=== PATIENT | male | born 1965 | race Caucasian/White ===

== ENCOUNTER → 2017-10-04 | Outpatient (CLI) | payer BC | END | disposition home or self-care (01) | LOC: LAB 16:42 | DX: N18.9 Chronic kidney disease, unspecified (principal) | CPT/HCPCS: 76775 ==

== ENCOUNTER → 2018-02-15 | Outpatient (CLI) | payer BC ==
[2018-02-15 11:33] LABS: ANION GAP 14 (8-16); BLOOD UREA NITROGEN 57 mg/dl (7-20); CALCIUM 8.7 mg/dl (8.4-10.2); CARBON DIOXIDE 22 mmol/L (21-31); CHLORIDE 109 mmol/L (97-110); CREATININE 5.31 mg/dl (0.61-1.24); GLUCOSE 171 mg/dl (70-220); POTASSIUM 4.9 mmol/L (3.5-5.1); SODIUM 140 mmol/L (135-144)
== END | disposition home or self-care (01) ==
LOC: LAB 10:49
DX: N18.9 Chronic kidney disease, unspecified (principal)
CPT/HCPCS: 80048

== ENCOUNTER 2018-03-14 14:50 | Inpatient (IN) | payer BC ==
[2018-03-14 17:25] LABS: ADD MAN DIFF? NO
[2018-03-14 17:29] LABS: BASOPHILS % 0.5 % (0.0-2.0); EOSINOPHILS # 0.3 10^3/ul (0.0-0.5); EOSINOPHILS % 3.6 % (0.0-7.0); HEMATOCRIT 25.9 % (42.0-52.0); HEMOGLOBIN 8.8 g/dl (14.0-18.0); LYMPHOCYTES # 1.1 10^3/ul (0.8-2.9); LYMPHOCYTES % 11.8 % (15.0-51.0); MEAN CORPUSCULAR HEMOGLOBIN 29.6 pg (29.0-33.0); MEAN CORPUSCULAR VOLUME 87.2 fl (82.0-101.0); MEAN PLATELET VOLUME 10.7 fl (7.4-10.4); MONOCYTE # 0.7 10^3/ul (0.3-0.9); MONOCYTES % 7.6 % (0.0-11.0); NEUTROPHIL # 6.8 10^3/ul (1.6-7.5); NEUTROPHILS % 76.2 % (39.0-77.0); PLATELET COUNT 249 10^3/UL (140-415); RED BLOOD COUNT 2.97 10^6/ul (4.70-6.10); RED CELL DISTRIBUTION WIDTH 14.4 % (11.5-14.5)
[2018-03-14 17:29] LABS: WHITE BLOOD COUNT 8.9 10^3/ul (4.8-10.8)
[2018-03-14] MEDS ORDERED: HYDROCODONE/APAP (5/325) TAB PO (17:30)
[2018-03-14] MEDS ORDERED: NACL 0.9% 3 ML SYG IV (17:30)
[2018-03-14] MEDS ORDERED: ZOLPIDEM 5 MG TAB PO (17:30)
[2018-03-14] MEDS ORDERED: LORAZEPAM 0.5 MG TAB PO (17:30)
[2018-03-14] MEDS ORDERED: ONDANSETRON 4 MG TAB PO (17:30)
[2018-03-14] MEDS ORDERED: DOCUSATE SODIUM 100 MG CAP PO (17:30)
[2018-03-14] MEDS ORDERED: ACETAMINOPHEN 325 MG TAB PO (17:30)
[2018-03-14] MEDS: ACCU-CHEK XX ×2 (17:30→20:00)
[2018-03-14] MEDS ORDERED: GLUCAGON 1 MG INJ IM (18:00)
[2018-03-14] MEDS ORDERED: CALCIUM ACETATE 667 MG CAP PO (18:00)
[2018-03-14] MEDS ORDERED: GLUCOSE GEL 15 GRAM TUBE PO ×2 (18:00)
[2018-03-14] MEDS ORDERED: DEXTROSE 50% 50 ML SYRINGE IV ×2 (18:00)
[2018-03-14] MEDS ORDERED: GLUCOSE GEL 15 GRAM TUBE BUCCAL (18:00)
[2018-03-14 18:07] LABS: ALANINE AMINOTRANSFERASE 19 IU/L (13-69); ALBUMIN 3.6 g/dl (3.3-4.9); ALKALINE PHOSPHATASE 78 IU/L (42-121); ANION GAP 14 (5-13); ASPARTATE AMINO TRANSFERASE 23 IU/L (15-46); BILIRUBIN,INDIRECT 0.2 mg/dl (0-1.1); BILIRUBIN,TOTAL 0.2 mg/dl (0.2-1.3); BLOOD UREA NITROGEN 74 mg/dl (7-20); CALCIUM 8.7 mg/dl (8.4-10.2); CARBON DIOXIDE 19 mmol/L (21-31); CHLORIDE 105 mmol/L (97-110); Estimated GFR 11 mL/min (>60); GLUCOSE 152 mg/dl (70-220); POTASSIUM 5.1 mmol/L (3.5-5.1); SODIUM 138 mmol/L (135-144); TOTAL PROTEIN 7.2 g/dl (6.1-8.1)
[2018-03-14 18:09] LABS: IONIZED CALCIUM 1.2 mmol/L (1.1-1.4)
[2018-03-14] MEDS: CALCIUM CARBONATE 750 MG CHEW TAB PO (18:27)
[2018-03-14] MEDS: FUROSEMIDE 20 MG INJ IV (18:29)
[2018-03-14] MEDS: METOLAZONE 10 MG TAB PO (18:30)
[2018-03-14] MEDS ORDERED: HEPARIN 5,000 UNIT/0.5 ML VIAL (20:24)
[2018-03-14] MEDS ORDERED: FAMOTIDINE 20 MG TAB PO (21:00)
[2018-03-14 21:32] LABS: ADD UMIC YES; UR ASCORBIC ACID NEGATIVE (NEGATIVE); UR BILIRUBIN (Dip) NEGATIVE (NEGATIVE); UR BLOOD (Dip) 1+ mg/dL (NEGATIVE); UR CLARITY CLEAR (CLEAR); UR COLOR STRAW (YELLOW); UR GLUCOSE (Dip) NEGATIVE (NEGATIVE); UR KETONES (Dip) NEGATIVE (NEGATIVE); UR LEUKOCYTE ESTERASE (Dip) NEGATIVE Leu/ul (NEGATIVE); UR NITRITE (Dip) NEGATIVE (NEGATIVE); UR RBC 1 /HPF (0-5); UR SPECIFIC GRAVITY (Dip) 1.011 (1.003-1.030); UR TOTAL PROTEIN (Dip) 2+ mg/dl (NEGATIVE); UR UROBILINOGEN (Dip) NEGATIVE (NEGATIVE); UR WBC 0 /HPF (0-5)
[2018-03-14 21:40] LABS: SODIUM,URINE RANDOM 79 mmol/L (30-90)
[2018-03-14 21:40] LABS: CREATININE,URINE RANDOM 79.61 mg/dl (20-370)
[2018-03-14] MEDS: FAMOTIDINE 20 MG TAB PO (21:41)
[2018-03-14] MEDS: METOLAZONE 5 MG TAB PO (21:41)
[2018-03-14] MEDS: HEPARIN SODIUM 5,000 UNIT/ML VIAL SC (22:36)
[2018-03-15 05:42] LABS: ADD MAN DIFF? NO
[2018-03-15 05:48] LABS: WHITE BLOOD COUNT 8.1 10^3/ul (4.8-10.8)
[2018-03-15 05:48] LABS: BASOPHILS % 0.5 % (0.0-2.0); EOSINOPHILS # 0.3 10^3/ul (0.0-0.5); EOSINOPHILS % 4.2 % (0.0-7.0); HEMATOCRIT 25.6 % (42.0-52.0); HEMOGLOBIN 8.5 g/dl (14.0-18.0); LYMPHOCYTES # 0.8 10^3/ul (0.8-2.9); LYMPHOCYTES % 10.4 % (15.0-51.0); MEAN CORPUSCULAR HGB CONC 33.2 g/dl (32.0-37.0); MEAN CORPUSCULAR VOLUME 87.4 fl (82.0-101.0); MEAN PLATELET VOLUME 11.1 fl (7.4-10.4); MONOCYTE # 0.8 10^3/ul (0.3-0.9); MONOCYTES % 9.5 % (0.0-11.0); NEUTROPHILS % 74.8 % (39.0-77.0); PLATELET COUNT 244 10^3/UL (140-415); RED BLOOD COUNT 2.93 10^6/ul (4.70-6.10); RED CELL DISTRIBUTION WIDTH 14.4 % (11.5-14.5)
[2018-03-15] MEDS: FUROSEMIDE 20 MG INJ IV ×2 (06:28→17:18)
[2018-03-15 06:32] LABS: ALANINE AMINOTRANSFERASE 15 IU/L (13-69); ALBUMIN 3.6 g/dl (3.3-4.9); ALKALINE PHOSPHATASE 70 IU/L (42-121); ANION GAP 16 (5-13); ASPARTATE AMINO TRANSFERASE 22 IU/L (15-46); BILIRUBIN,INDIRECT 0.3 mg/dl (0-1.1); BILIRUBIN,TOTAL 0.3 mg/dl (0.2-1.3); BLOOD UREA NITROGEN 78 mg/dl (7-20); CALCIUM 8.9 mg/dl (8.4-10.2); CARBON DIOXIDE 18 mmol/L (21-31); CHLORIDE 104 mmol/L (97-110); CREATININE 5.49 mg/dl (0.61-1.24); Estimated GFR 11 mL/min (>60); GLUCOSE 125 mg/dl (70-220); POTASSIUM 5.2 mmol/L (3.5-5.1); SODIUM 138 mmol/L (135-144); TOTAL PROTEIN 7.6 g/dl (6.1-8.1)
[2018-03-15 06:45] LABS: HEPATITIS B SURFACE ANTIGEN NEGATIVE (NEGATIVE)
[2018-03-15] MEDS: ACCU-CHEK XX ×6 (07:00→20:44)
[2018-03-15 07:01] LABS: HEPATITIS B SURFACE ANTIBODY NEGATIVE (NEGATIVE)
[2018-03-15 07:01] LABS: HEPATITIS C VIRAL ANTIBODY NEGATIVE (NEGATIVE)
[2018-03-15 07:56] LABS: HEMOGLOBIN A1C 7.2 % (0-5.9)
[2018-03-15] MEDS ORDERED: HEPARIN 5,000 UNIT/0.5 ML VIAL ×2 (08:14→20:51)
[2018-03-15] MEDS: ALLOPURINOL 300 MG TAB PO (08:32)
[2018-03-15] MEDS: CALCIUM CARBONATE 750 MG CHEW TAB PO ×3 (08:32→17:17)
[2018-03-15] MEDS: HEPARIN SODIUM 5,000 UNIT/ML VIAL SC ×2 (08:48→21:53)
[2018-03-15] MEDS: NA POLYST SULFON 15 GM/60 ML BTL PO (09:12)
[2018-03-15] MEDS ORDERED: GUAIFENESIN/DM 5ML CUP PO (10:00)
[2018-03-15] MEDS: CITRIC ACID/NA CITRATE 30 ML CUP PO ×3 (10:37→21:01)
[2018-03-15] MEDS: METOLAZONE 10 MG TAB PO (12:00)
[2018-03-15] MEDS: FLUTICASONE 0.05% 16 GM NAS SPRAY NASAL ×2 (12:22→21:00)
[2018-03-15] MEDS: METOLAZONE 5 MG TAB PO (15:45)
[2018-03-15] MEDS: FAMOTIDINE 20 MG TAB PO (21:01)
[2018-03-16 06:15] LABS: HAAIG REFLEX REFLEX FILED
[2018-03-16] MEDS: FUROSEMIDE 20 MG INJ IV ×2 (06:30→18:27)
[2018-03-16 06:43] LABS: ANION GAP 14 (5-13); BLOOD UREA NITROGEN 85 mg/dl (7-20); CALCIUM 8.5 mg/dl (8.4-10.2); CARBON DIOXIDE 22 mmol/L (21-31); CHLORIDE 102 mmol/L (97-110); CREATININE 5.63 mg/dl (0.61-1.24); Estimated GFR 11 mL/min (>60); GLUCOSE 126 mg/dl (70-220); POTASSIUM 4.5 mmol/L (3.5-5.1); SODIUM 138 mmol/L (135-144)
[2018-03-16] MEDS: ACCU-CHEK XX ×6 (07:29→20:00)
[2018-03-16 07:44] LABS: HEPATITIS B SURFACE ANTIGEN NEGATIVE (NEGATIVE)
[2018-03-16 08:01] LABS: HEPATITIS B CORE ANTIBODY NEGATIVE (NEGATIVE); HEPATITIS C VIRAL ANTIBODY NEGATIVE (NEGATIVE); HIV 1&2 ANTIBODY NEGATIVE (NEGATIVE)
[2018-03-16] MEDS ORDERED: HEPARIN 5,000 UNIT/0.5 ML VIAL ×2 (08:26→21:24)
[2018-03-16] MEDS: CALCIUM CARBONATE 750 MG CHEW TAB PO ×3 (08:30→17:38)
[2018-03-16] MEDS: FLUTICASONE 0.05% 16 GM NAS SPRAY NASAL ×2 (08:30→21:37)
[2018-03-16] MEDS: CITRIC ACID/NA CITRATE 30 ML CUP PO ×3 (08:30→21:37)
[2018-03-16] MEDS: ALLOPURINOL 300 MG TAB PO (08:30)
[2018-03-16] MEDS: HEPARIN SODIUM 5,000 UNIT/ML VIAL SC ×2 (09:24→21:59)
[2018-03-16] MEDS: ATENOLOL 25 MG TAB PO (12:14)
[2018-03-16] MEDS: METOLAZONE 5 MG TAB PO (12:36)
[2018-03-16] MEDS ORDERED: METOLAZONE 5 MG TAB PO (12:51)
[2018-03-16 12:57] LABS: COLLECTION PERIOD 24 hrs
[2018-03-16 13:37] LABS: COLLECTION PERIOD 24 hrs; SCRET 5.63 mg/dl (0.61-1.24); VOLUME 4250 ml/24hrs
[2018-03-16 13:38] LABS: CREATININE CLEARANCE 29.1 mls/min (84.0-162.0); CREATININE,URINE RANDOM 55.47 mg/dl (20-370)
[2018-03-16 13:48] LABS: VOLUME 4250 mls
[2018-03-16] MEDS: EPOETIN 3000 UNITS/ML (NON ESRD/NON ONCOLOGY) SC (16:50)
[2018-03-16] MEDS: FAMOTIDINE 20 MG TAB PO (21:37)
[2018-03-16] MEDS: DOXAZOSIN 1 MG TAB PO (21:38)
[2018-03-17] MEDS: FUROSEMIDE 20 MG INJ IV (06:21)
[2018-03-17] MEDS: ACCU-CHEK XX ×4 (06:28→13:50)
[2018-03-17 06:42] LABS: RETICULOCYTE COUNT # 0.085 X10^6 (0.020-0.110); RETICULOCYTE COUNT % 3.2 % (0.5-1.5)
[2018-03-17 06:42] LABS: RETICULOCYTE RBC 2.67
[2018-03-17 07:15] LABS: IRON 62 ug/dl (35-150)
[2018-03-17 07:24] LABS: % IRON SATURATION 22 % SAT (22-52); TOTAL IRON BINDING CAPACITY 287 ug/dl (241-421)
[2018-03-17] MEDS ORDERED: HEPARIN 5,000 UNIT/0.5 ML VIAL (08:13)
[2018-03-17] MEDS: CALCIUM CARBONATE 750 MG CHEW TAB PO ×2 (08:20→11:54)
[2018-03-17] MEDS: ALLOPURINOL 300 MG TAB PO (08:21)
[2018-03-17] MEDS: ATENOLOL 25 MG TAB PO (08:21)
[2018-03-17] MEDS: FLUTICASONE 0.05% 16 GM NAS SPRAY NASAL (08:21)
[2018-03-17] MEDS: CITRIC ACID/NA CITRATE 30 ML CUP PO (08:21)
[2018-03-17] MEDS: HEPARIN SODIUM 5,000 UNIT/ML VIAL SC (08:40)
[2018-03-17] MEDS: NIFEdipine (XL) 60 MG TAB PO (11:54)
[2018-03-17 13:16] LABS: ANION GAP 16 (5-13); BLOOD UREA NITROGEN 86 mg/dl (7-20); CALCIUM 9.3 mg/dl (8.4-10.2); CARBON DIOXIDE 26 mmol/L (21-31); CHLORIDE 97 mmol/L (97-110); Estimated GFR 11 mL/min (>60); GLUCOSE 135 mg/dl (70-220); POTASSIUM 4.4 mmol/L (3.5-5.1); SODIUM 139 mmol/L (135-144)
[2018-03-17] MEDS ORDERED: DOXAZOSIN 4 MG TAB PO (21:00)
[2018-03-18] MEDS ORDERED: FUROSEMIDE 40 MG TAB PO (09:00)
== END 2018-03-17 15:05 | disposition home or self-care (01) | DRG 684 ==
LOC: 6WM 14:50
PROVIDERS: Internal Medicine
DX: N17.9 Acute kidney failure, unspecified (principal); I12.9 Hypertensive chronic kidney disease with stage 1 through stage 4 chronic kidney disease, or unspecified chronic kidney disease; N18.4 Chronic kidney disease, stage 4 (severe); E11.22 Type 2 diabetes mellitus with diabetic chronic kidney disease; E87.70 Fluid overload, unspecified; E87.5 Hyperkalemia; R09.89 Other specified symptoms and signs involving the circulatory and respiratory systems; M10.9 Gout, unspecified; E78.5 Hyperlipidemia, unspecified; Z86.73 Personal history of transient ischemic attack (TIA), and cerebral infarction without residual deficits; Z87.891 Personal history of nicotine dependence
CPT/HCPCS: 71046; 80048; 80053; 81001; 82330; 82575; 82728; 82962; 83036; 83540; 84155; 84156; 84300; 84443; 85025; 85045; 86703; 86704; 86706; 86708; 86709; 86803; 87340; 90686; 93005

== ENCOUNTER → 2018-04-04 | Outpatient (CLI) | payer BC ==
[2018-04-04 11:49] LABS: ADD MAN DIFF? NO
[2018-04-04 11:54] LABS: WHITE BLOOD COUNT 6.2 10^3/ul (4.8-10.8)
[2018-04-04 11:54] LABS: BASOPHILS % 0.6 % (0.0-2.0); EOSINOPHILS # 0.5 10^3/ul (0.0-0.5); EOSINOPHILS % 7.2 % (0.0-7.0); HEMATOCRIT 28.6 % (42.0-52.0); HEMOGLOBIN 9.7 g/dl (14.0-18.0); LYMPHOCYTES # 0.9 10^3/ul (0.8-2.9); LYMPHOCYTES % 14.9 % (15.0-51.0); MEAN CORPUSCULAR HGB CONC 33.9 g/dl (32.0-37.0); MEAN CORPUSCULAR VOLUME 85.6 fl (82.0-101.0); MEAN PLATELET VOLUME 10.7 fl (7.4-10.4); MONOCYTE # 0.4 10^3/ul (0.3-0.9); MONOCYTES % 6.9 % (0.0-11.0); NEUTROPHIL # 4.4 10^3/ul (1.6-7.5); NEUTROPHILS % 70.1 % (39.0-77.0); PLATELET COUNT 232 10^3/UL (140-415); RED BLOOD COUNT 3.34 10^6/ul (4.70-6.10); RED CELL DISTRIBUTION WIDTH 13.4 % (11.5-14.5)
[2018-04-04 11:56] LABS: ADD UMIC YES; UR ASCORBIC ACID NEGATIVE (NEGATIVE); UR BILIRUBIN (Dip) NEGATIVE (NEGATIVE); UR BLOOD (Dip) 1+ mg/dL (NEGATIVE); UR CLARITY CLEAR (CLEAR); UR COLOR STRAW (YELLOW); UR GLUCOSE (Dip) 1+ mg/dL (NEGATIVE); UR KETONES (Dip) NEGATIVE (NEGATIVE); UR LEUKOCYTE ESTERASE (Dip) NEGATIVE Leu/ul (NEGATIVE); UR NITRITE (Dip) NEGATIVE (NEGATIVE); UR RBC 2 /HPF (0-5); UR SPECIFIC GRAVITY (Dip) 1.012 (1.003-1.030); UR TOTAL PROTEIN (Dip) 3+ mg/dl (NEGATIVE); UR UROBILINOGEN (Dip) NEGATIVE (NEGATIVE); UR WBC 0 /HPF (0-5)
[2018-04-04 12:14] LABS: ALANINE AMINOTRANSFERASE 6 IU/L (13-69); ALBUMIN 4.4 g/dl (3.3-4.9); ALBUMIN/GLOBULIN RATIO 1.18; ALKALINE PHOSPHATASE 70 IU/L (42-121); ANION GAP 15 (5-13); ASPARTATE AMINO TRANSFERASE 20 IU/L (15-46); BILIRUBIN,INDIRECT 0.2 mg/dl (0-1.1); BILIRUBIN,TOTAL 0.2 mg/dl (0.2-1.3); BLOOD UREA NITROGEN 69 mg/dl (7-20); CALCIUM 9.5 mg/dl (8.4-10.2); CARBON DIOXIDE 21 mmol/L (21-31); CHLORIDE 106 mmol/L (97-110); CREATININE 5.12 mg/dl (0.61-1.24); Estimated GFR 12 mL/min (>60); GLUCOSE 162 mg/dl (70-220); POTASSIUM 4.2 mmol/L (3.5-5.1); SODIUM 142 mmol/L (135-144); TOTAL PROTEIN 8.1 g/dl (6.1-8.1)
[2018-04-05 16:56] LABS: CREATININE, RANDOM URINE 119 mg/dL (20-320); MICROALBUMIN 213.4 mg/dL; MICROALBUMIN/CREATININE RATIO 1793 (<30)
== END | disposition home or self-care (01) ==
LOC: LAB 11:10
DX: I12.9 Hypertensive chronic kidney disease with stage 1 through stage 4 chronic kidney disease, or unspecified chronic kidney disease (principal); N18.4 Chronic kidney disease, stage 4 (severe)
CPT/HCPCS: 80053; 81001; 82043; 85025

== ENCOUNTER → 2018-06-20 | Outpatient (CLI) | payer BC ==
[2018-06-20 12:41] LABS: ADD MAN DIFF? NO
[2018-06-20 12:45] LABS: WHITE BLOOD COUNT 7.4 10^3/ul (4.8-10.8)
[2018-06-20 12:46] LABS: BASOPHILS % 0.5 % (0.0-2.0); EOSINOPHILS # 0.4 10^3/ul (0.0-0.5); EOSINOPHILS % 5.5 % (0.0-7.0); HEMATOCRIT 29.1 % (42.0-52.0); HEMOGLOBIN 9.8 g/dl (14.0-18.0); LYMPHOCYTES # 1.3 10^3/ul (0.8-2.9); LYMPHOCYTES % 17.3 % (15.0-51.0); MEAN CORPUSCULAR HEMOGLOBIN 28.6 pg (29.0-33.0); MEAN CORPUSCULAR HGB CONC 33.7 g/dl (32.0-37.0); MEAN CORPUSCULAR VOLUME 84.8 fl (82.0-101.0); MONOCYTE # 0.6 10^3/ul (0.3-0.9); MONOCYTES % 8.4 % (0.0-11.0); NEUTROPHILS % 67.8 % (39.0-77.0); PLATELET COUNT 209 10^3/UL (140-415); RED BLOOD COUNT 3.43 10^6/ul (4.70-6.10)
[2018-06-20 13:27] LABS: ALANINE AMINOTRANSFERASE 10 IU/L (13-69); ALKALINE PHOSPHATASE 80 IU/L (42-121); ANION GAP 13 (5-13); ASPARTATE AMINO TRANSFERASE 18 IU/L (15-46); BILIRUBIN,INDIRECT 0.2 mg/dl (0-1.1); BILIRUBIN,TOTAL 0.2 mg/dl (0.2-1.3); BLOOD UREA NITROGEN 51 mg/dl (7-20); CALCIUM 8.9 mg/dl (8.4-10.2); CARBON DIOXIDE 24 mmol/L (21-31); CHLORIDE 105 mmol/L (97-110); CREATININE 5.05 mg/dl (0.61-1.24); Estimated GFR 12 mL/min (>60); GLUCOSE 151 mg/dl (70-220); MAGNESIUM 1.2 mg/dl (1.7-2.5); PHOSPHORUS 5.9 mg/dl (2.5-4.9); POTASSIUM 4.2 mmol/L (3.5-5.1); SODIUM 142 mmol/L (135-144)
== END | disposition home or self-care (01) ==
LOC: LAB 12:18
DX: N18.9 Chronic kidney disease, unspecified (principal)
CPT/HCPCS: 80053; 83735; 84100; 85025

== ENCOUNTER → 2018-12-05 | Outpatient (CLI) | payer BC ==
[2018-12-05 11:40] LABS: ADD MAN DIFF? NO
[2018-12-05 11:44] LABS: BASOPHIL # 0.1 10^3/ul (0.0-0.1); BASOPHILS % 0.9 % (0.0-2.0); EOSINOPHILS # 0.5 10^3/ul (0.0-0.5); EOSINOPHILS % 7.7 % (0.0-7.0); HEMATOCRIT 26.7 % (42.0-52.0); LYMPHOCYTES # 0.9 10^3/ul (0.8-2.9); LYMPHOCYTES % 15.9 % (15.0-51.0); MEAN CORPUSCULAR HEMOGLOBIN 29.2 pg (29.0-33.0); MEAN CORPUSCULAR HGB CONC 33.7 g/dl (32.0-37.0); MEAN CORPUSCULAR VOLUME 86.7 fl (82.0-101.0); MEAN PLATELET VOLUME 10.8 fl (7.4-10.4); MONOCYTE # 0.5 10^3/ul (0.3-0.9); MONOCYTES % 8.4 % (0.0-11.0); NEUTROPHIL # 3.9 10^3/ul (1.6-7.5); NEUTROPHILS % 66.8 % (39.0-77.0); PLATELET COUNT 195 10^3/UL (140-415); RED BLOOD COUNT 3.08 10^6/ul (4.70-6.10); RED CELL DISTRIBUTION WIDTH 14.9 % (11.5-14.5)
[2018-12-05 11:44] LABS: WHITE BLOOD COUNT 5.9 10^3/ul (4.8-10.8)
[2018-12-05 11:54] LABS: ADD UMIC YES; UR ASCORBIC ACID NEGATIVE (NEGATIVE); UR BILIRUBIN (Dip) NEGATIVE (NEGATIVE); UR BLOOD (Dip) 1+ mg/dL (NEGATIVE); UR CLARITY TURBID (CLEAR); UR COLOR AMBER (YELLOW); UR GLUCOSE (Dip) 1+ mg/dL (NEGATIVE); UR KETONES (Dip) NEGATIVE (NEGATIVE); UR LEUKOCYTE ESTERASE (Dip) NEGATIVE Leu/ul (NEGATIVE); UR NITRITE (Dip) NEGATIVE (NEGATIVE); UR RBC 0 /HPF (0-5); UR SPECIFIC GRAVITY (Dip) 1.008 (1.003-1.030); UR TOTAL PROTEIN (Dip) 2+ mg/dl (NEGATIVE); UR UROBILINOGEN (Dip) NEGATIVE (NEGATIVE); UR WBC 0 /HPF (0-5)
[2018-12-05 12:04] LABS: ALANINE AMINOTRANSFERASE 33 IU/L (13-69); ALBUMIN 3.8 g/dl (3.3-4.9); ALBUMIN/GLOBULIN RATIO 0.92; ALKALINE PHOSPHATASE 86 IU/L (42-121); ANION GAP 12 (5-13); ASPARTATE AMINO TRANSFERASE 26 IU/L (15-46); BILIRUBIN,INDIRECT 0.7 mg/dl (0-1.1); BILIRUBIN,TOTAL 0.7 mg/dl (0.2-1.3); BLOOD UREA NITROGEN 50 mg/dl (7-20); CALCIUM 8.1 mg/dl (8.4-10.2); CARBON DIOXIDE 22 mmol/L (21-31); CHLORIDE 105 mmol/L (97-110); CREATININE 5.97 mg/dl (0.61-1.24); Estimated GFR 10 mL/min (>60); GLUCOSE 177 mg/dl (70-220); POTASSIUM 3.8 mmol/L (3.5-5.1); SODIUM 139 mmol/L (135-144); TOTAL PROTEIN 7.9 g/dl (6.1-8.1)
[2018-12-06 18:31] LABS: CREATININE, RANDOM URINE 58 mg/dL (20-320); MICROALBUMIN 147.5 mg/dL; MICROALBUMIN/CREATININE RATIO 2543 (<30)
== END | disposition home or self-care (01) ==
LOC: LAB 11:17
DX: N18.9 Chronic kidney disease, unspecified (principal)
CPT/HCPCS: 80053; 81001; 82043; 84100; 85025